=== PATIENT | male | born 1930 | race Caucasian/White ===

== ENCOUNTER 2017-05-24 23:25 | Inpatient (IN) | payer MEDICARE, OTHER ==
[~2017-05-24] VITALS: Ht 177.8 cm; Wt 71.3 kg
[2017-05-24] MEDS: PLEASE ENTER ALLERGIES MC SCH ×2 (23:45)
[2017-05-24] MEDS ORDERED: LOSA100T6 PO (23:46)
[2017-05-24] MEDS ORDERED: ASPI-515 PO (23:48)
[2017-05-24] MEDS ORDERED: ACETAMINOPHEN 500 MG TABLET ONE (23:52)
[2017-05-25] MEDS ORDERED: SODIUM CHLORIDE FLUSH 10ML SYR IVF ONE
[2017-05-25] MEDS ORDERED: ACETAMINOPHEN 325 MG TABLET PO ONE
[2017-05-25] MEDS ORDERED: ACETAMINOPHEN 500 MG TABLET PO ONE
[2017-05-25] MEDS ORDERED: SODIUM CHLORIDE 0.9% 1,000ML IVBOLUS ONE ×2
[2017-05-25] MEDS: ALBUTEROL/IPRATROPIUM 2.5MG/0.5MG, 3 ML NPPB SCH (00:19)
[2017-05-25 00:27] LABS: HEMATOCRIT 38.1 % (39.2-51.8); WHITE BLOOD COUNT 5.9 x10^3/uL (3.4-10)
[2017-05-25 00:39] LABS: ASPARTATE AMINO TRANSFERASE 25 U/L (15-37); BLOOD UREA NITROGEN 18 mg/dL (7-18)
[2017-05-25] MEDS ORDERED: OMNIPAQUE 350 MG/ML, 75ML BOTTLE ONE (01:16)
[2017-05-25 02:27] LABS: RAPID INFLUENZA A Negative (Negative); RAPID INFLUENZA B Negative (Negative)
[2017-05-25] MEDS ORDERED: ONDANSETRON 2MG/ML, 2ML IVPush PRN (03:00)
[2017-05-25] MEDS ORDERED: DOCUSATE 100 MG CAPSULE PO PRN (03:00)
[2017-05-25] MEDS ORDERED: ACETAMINOPHEN 325 MG TABLET PO PRN (03:00)
[2017-05-25] MEDS ORDERED: GUAIFENESIN/DM 200-20MG, 10ML UDC PO PRN (03:00)
[2017-05-25 03:35] VITALS: BP 159/80
[2017-05-25] MEDS: PLEASE ENTER ALLERGIES MC SCH ×2 (04:32)
[2017-05-25] MEDS: methylPREDNISolone SOD SUCC 40 MG/ML IV SCH ×2 (05:11→16:13)
[2017-05-25] MEDS: ENOXAPARIN 40 MG/0.4 ML SQ SCH (05:11)
[2017-05-25] MEDS: ALBUTEROL SULFATE 2.5 MG/3 ML NPPB SCH ×4 (07:00→19:50)
[2017-05-25 07:47] VITALS: BP 207/97
[2017-05-25] MEDS: BENZONATATE 100 MG CAPSULE PO SCH ×3 (07:54→21:24)
[2017-05-25] MEDS: ASPIRIN 81 MG TABLET EC PO SCH (07:54)
[2017-05-25] MEDS: LOSARTAN 50MG TABLET PO SCH (07:54)
[2017-05-25] MEDS: SODIUM CHLORIDE 0.9% 1,000 ML IV SCH ×2 (07:54→22:18)
[2017-05-25 11:14] VITALS: BP 157/91
[2017-05-25 14:16] VITALS: BP 145/73
[2017-05-25 19:01] VITALS: BP 138/61
[2017-05-26 00:53] VITALS: BP 166/80
[2017-05-26 04:38] LABS: HEMATOCRIT 34.5 % (39.2-51.8); HEMOGLOBIN 11.9 g/dL (13.7-18.0); WHITE BLOOD COUNT 7.1 x10^3/uL (3.4-10)
[2017-05-26 04:43] LABS: BLOOD UREA NITROGEN 16 mg/dL (7-18)
[2017-05-26] MEDS: ENOXAPARIN 40 MG/0.4 ML SQ SCH (05:36)
[2017-05-26 07:18] VITALS: BP 180/85
[2017-05-26] MEDS: BENZONATATE 100 MG CAPSULE PO SCH ×3 (08:22→21:13)
[2017-05-26] MEDS: LOSARTAN 50MG TABLET PO SCH (08:22)
[2017-05-26] MEDS: ASPIRIN 81 MG TABLET EC PO SCH (08:22)
[2017-05-26] MEDS: hydrALAzine 20 MG/ML, 1ML IVPush PRN (08:23)
[2017-05-26] MEDS: ALBUTEROL SULFATE 2.5 MG/3 ML NPPB SCH ×4 (08:35→20:57)
[2017-05-26 08:52] VITALS: BP 154/70
[2017-05-26 09:39] LABS: IS PT STATUS REG ER OR PRE ER? NO
[2017-05-26] MEDS ORDERED: MAGNESIUM SULFATE PMX 2GM/50ML 50 ML IV ONE (12:00)
[2017-05-26] MEDS ORDERED: HYDROcodone/CHLORPHENIR ORAL SUSP PO PRN (12:00)
[2017-05-26 13:28] VITALS: BP 115/55
[2017-05-26 15:33] LABS: IS PT STATUS REG ER OR PRE ER? NO
[2017-05-26 20:14] VITALS: BP 156/81
[2017-05-26 21:17] LABS: IS PT STATUS REG ER OR PRE ER? NO
[2017-05-26] MEDS ORDERED: HEPARIN 5,000 UNITS/ML, 1ML IV ONE (23:00)
[2017-05-26] MEDS ORDERED: HEPARIN 25,000 UNITS/500ML PMX 500 ML IV PRN (23:00)
[2017-05-26] MEDS ORDERED: HEPARIN 5,000 UNITS/ML, 1ML IV PRN (23:00)
[2017-05-27 01:18] VITALS: BP 165/82
[2017-05-27 04:58] LABS: IS PT STATUS REG ER OR PRE ER? NO
[2017-05-27] MEDS: hydrALAzine 20 MG/ML, 1ML IVPush PRN (08:21)
[2017-05-27 08:25] VITALS: BP 193/94
[2017-05-27] MEDS: ALBUTEROL SULFATE 2.5 MG/3 ML NPPB SCH ×3 (08:30→21:04)
[2017-05-27] MEDS ORDERED: hydrALAzine 20 MG/ML, 1ML IV ONE (09:00)
[2017-05-27] MEDS: BENZONATATE 100 MG CAPSULE PO SCH ×3 (09:02→21:09)
[2017-05-27] MEDS: ASPIRIN 81 MG TABLET EC PO SCH (09:02)
[2017-05-27] MEDS: LOSARTAN 50MG TABLET PO SCH (09:02)
[2017-05-27] MEDS ORDERED: MORPHINE SULFATE 4 MG/ML, 1ML IVPush PRN ×2 (09:30)
[2017-05-27] MEDS ORDERED: ENOXAPARIN 40 MG/0.4 ML SQ SCH (11:00)
[2017-05-27] MEDS ORDERED: LOPERAMIDE 2 MG CAPSULE PO PRN (11:00)
[2017-05-27 14:55] VITALS: BP 157/88
[2017-05-27] MEDS: OXYMETAZOLINE NASAL SPRAY 0.05%, 15ML NAS PRN ×2 (17:16→21:08)
[2017-05-27] MEDS ORDERED: METOPROLOL TARTRATE 25 MG TABLET PO SCH (18:00)
[2017-05-27 19:10] VITALS: BP 169/86
[2017-05-27] MEDS ORDERED: ATORVASTATIN 40 MG TABLET PO SCH (21:00)
[2017-05-28] VITALS (7 sets, daily range): BP systolic 129–213; BP diastolic 75–100
[2017-05-28 05:55] LABS: IS PT STATUS REG ER OR PRE ER? NO
[2017-05-28] MEDS: BENZONATATE 100 MG CAPSULE PO SCH (07:58)
[2017-05-28] MEDS: ASPIRIN 81 MG TABLET EC PO SCH (07:58)
[2017-05-28] MEDS: LOSARTAN 50MG TABLET PO SCH (07:59)
[2017-05-28] MEDS: OXYMETAZOLINE NASAL SPRAY 0.05%, 15ML NAS PRN (08:06)
[2017-05-28] MEDS ORDERED: REGADENOSON 0.4 MG/5 ML SYRINGE ONE (09:16)
[2017-05-28] MEDS ORDERED: LABETALOL 5MG/ML, 20ML IVPush PRN (10:30)
[2017-05-28] MEDS: ALBUTEROL SULFATE 2.5 MG/3 ML NPPB SCH (11:45)
== END 2017-05-28 14:39 | disposition home or self-care (01) | DRG 70 ==
LOC: SUATTDRO 05-25 02:57 → ED 05-25 03:01 → EDIP 05-25 03:13 → 3NW 05-25 03:30 → 4EST 05-26 18:10 → 5SO 05-27 10:46
PROVIDERS: ADMIT Hospitalist; ATTEND Hospitalist
DX: G93.40 Encephalopathy, unspecified (principal); J96.01 Acute respiratory failure with hypoxia; I24.8 Other forms of acute ischemic heart disease; I71.2 Thoracic aortic aneurysm, without rupture; J20.8 Acute bronchitis due to other specified organisms; W18.30XA Fall on same level, unspecified, initial encounter; D64.9 Anemia, unspecified; I10 Essential (primary) hypertension; Y93.89 Activity, other specified; Y92.098 Other place in other non-institutional residence as the place of occurrence of the external cause; Y99.8 Other external cause status; Z77.090 Contact with and (suspected) exposure to asbestos; Z86.73 Personal history of transient ischemic attack (TIA), and cerebral infarction without residual deficits
CPT/HCPCS: 36415; 71010; 71260; 78452; 80048; 80053; 80061; 81003; 83605; 83735; 84100; 84145; 84484; 85025; 85520; 87040; 87324; 87400; 93005; 93017; 93306; 94640; 96360; 96361; J1644; J1650; J2785; J7613; J7620; Q9967; A9502; C9898; J0360; J2920; J3475; J7030